=== PATIENT | female | born 1990 | race Two or more races ===

== ENCOUNTER 2020-04-24 09:50 | Emergency (ER) | payer OTHER, SELFPAY ==
--- NOTE | 2020-04-24 10:45 | XR_ITS ---
EXAMINATION: XR CHEST CLINICAL INFORMATION: Cough, shortness of breath COMPARISON: None TECHNIQUE: Portable upright AP view of the chest was obtained. FINDINGS: The lungs are clear. There is no airspace consolidation or groundglass opacity. There is no pleural reaction or effusion. The heart is normal in size. The hilar and mediastinal contours are normal. There is mild curvature thoracic spine. XR/XR chest 1V IMPRESSION: Lungs clear.
[2020-04-24 10:46] VITALS: BP 122/70; PULSE 76; RESP 16; TEMP 36.7; O2SAT 98; BMI 25.7
--- NOTE | 2020-04-24 11:35 | ED_ITS ---
HPI - URI/Sore Throat General Chief Complaint: Upper Respiratory Symptoms Stated Complaint: COUGH,SOB Time Seen by Provider: 04/24/20 10:45 Source: patient Mode of arrival: ambulatory Limitations: no limitations History of Present Illness HPI Narrative: Otherwise healthy 30-year-old female presenting with complaint of states since yesterday she started with some rhinorrhea and nasal congestion with cough starting later in the day and has had symptoms gradually worsening. Now has cough fits. Denies any history of asthma. 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 No travel. No chest pain at the moment. No GI symptoms. No headache. MD elicited complaint: cough, sore throat, rhinorrhea and nasal congestion Severity: mild Description of mucous: clear Able to tolerate fluids by mouth: Yes Exacerbating factors: nothing Relieving factors: other (Has not tried anything) Associated symptoms: rhinorrhea, nasal congestion, sore throat and cough Treatments prior to arrival: none Related Data Previous Rx's Medication Instructions Recorded albuterol sulfate 2 puff INHALATION Q4-6H PRN #18 g 04/24/20 benzonatate [Tessalon Perles] 100 mg PO TID PRN #14 cap 04/24/20 Allergies Allergy/AdvReac Type Severity Reaction Status Date / Time acetaminophen [From VICODIN] Allergy Unknown UNKNOWN Verified 04/13/20 13:00 hydrocodone [From VICODIN] Allergy Unknown UNKNOWN Verified 04/13/20 13:00 Review of Systems Review of Systems: Constitutional: No Weight loss, No Fever, No Chills, No Night Sweats, No Fatigue, No Malaise ENT/Mouth: No Hearing loss, No Ear Pain, No Hoarseness, No Swallowing Difficulty Eyes: No Eye Pain, No Swelling, No Redness, No Foreign Body, No Discharge, No Vision Changes Cardiovascular: No Chest Pain, No SOB, No Dyspnea on Exertion, No Orthopnea, No Edema, No Palpitations Respiratory: + Cough, No Sputum, No Wheezing, No Smoke Exposure, No Dyspnea Gastrointestinal: No Nausea, No Vomiting, No Diarrhea, No Constipation, No abdominal Pain, No Hematochezia, No Melena Genitourinary: no irregular bleeding, No Dysuria, No Urinary Frequency, No Hematuria, No Urinary Incontinence, No Urgency, No Flank Pain, No Urinary Flow Changes, No Hesitancy Musculoskeletal: No joint pain, No Myalgias, No Joint Swelling Skin: No Skin Lesions, No rash Neuro: No Weakness, No Numbness, No Paresthesias, No Loss of Consciousness, No Dizziness, No Headache Heme/Lymph: No Bruising, No Bleeding,No Lymphadenopathy Endocrine: No Polyuria, No Polydipsia, No Temperature Intolerance Yes all other systems are reviewed and are negative [facility] Past Medical History Surgical History History of orthopedic surgery Family History Family History (Updated 04/13/20 @ 13:01 by Zarina Paniagua [facility]) Father No problems noted. Mother Hypertension Diabetes Family history of thyroid problem Family/Other Liver cancer Diabetes Alcoholism Social History Social History Advance Directives: No Advance Directives Information Provided: No Physical Exam Vital Signs: Vital Signs: Last Vital Signs Temp 98.1 F 04/24/20 10:46 Pulse 76 04/24/20 10:46 Resp 16 04/24/20 10:46 BP 122/70 04/24/20 10:46 Pulse Ox 98 04/24/20 10:46 Body Mass Index 25.7 Reviewed Const: General: cooperative and healthy appearing; No acute distress or intoxicated appearing Nutritional Appearance: average body habitus Orientation/consciousness: patient oriented x3 HENMT: Head: Yes normal to inspection Ears: hearing grossly normal bilaterally Eyes: General: appearance normal, both eyes and all related structures Visual Yates: normal visual yates by confrontation Neck: Neck: Yes normal visual inspection, No positive Brudzinski's sign, No positive Kernig's sign and No tender Thyroid: Thyroid normal Chest: Chest palpation & inspection: normal inspection of the chest Resp: Other: Fits of dry bronchial cough Effort & Inspection: normal respiratory effort Auscultation: clear to auscultation bilaterally Cardio: Jugular venous distension: no JVD Rhythm: regular rhythm GI: Inspection: Yes normal to inspection Percussion: Yes normal to percussion Auscultation: normal bowel sounds : General: Yes no CVA tenderness Back/Spine/Pelvis: Back: no CVA tenderness Skin: General skin exam: no rashes or lesions noted Neuro: General: patient oriented x3 Extrem: General: Yes normal to inspection MDM - URI/Sore Throat MDM Narrative Medical decision making narrative: Chest x-ray negative. Upper strep negative. Culture pending. COVID-19 PCR sent. Will discharge with clear precaution return follow-up instructions. At this time hemodynamically stable home care reviewed. Work note provided. Stable for discharge. Differential Diagnosis Differential diagnosis: Likely upper respiratory infection, viral infection, bronchitis and pharyngitis; Unlikely croup, otitis media, sinusitis and influenza Medical Records Attestation: I reviewed the patient's medical records. Lab Data Attestation: I reviewed the patient's lab results. Imaging Data Chest x-ray: Radiologist's impression: [address] [address] XRay Report Signed Patient: Ludy Szymanski#: [id number] : 1990Acct:[id number] Age/Sex: 30 / FADM Date: 04/24/20 Loc: .ED Attending Dr: Ordering Physician: Enrico Espinosa NP Date of Service: 04/24/20 Procedure(s): XR chest 1V Accession Number(s): [id number] cc: Enrico Espinosa INGOT CASTER~ EXAMINATION: XR CHEST CLINICAL INFORMATION: Cough, shortness of breath COMPARISON: None TECHNIQUE: Portable upright AP view of the chest was obtained. FINDINGS: The lungs are clear. There is no airspace consolidation or groundglass opacity. There is no pleural reaction or effusion. The heart is normal in size. The hilar and mediastinal contours are normal. There is mild curvature thoracic spine. XR/XR chest 1V IMPRESSION: Lungs clear. Dictated By:MAXWELL COSTA MD Signed By:<Electronically signed by MAXWELL COSTA MD in OV>04/24/20 1109 DD/ 1045 TD/TT: Sql Server Bi Developer: ANTONY Discharge Plan Discharge Clinical Impression: Upper respiratory infection, Cough Instructions: Upper Respiratory Infection (ED), Acute Cough (ED) Additional Instructions: We have since reviewed COVID-19 This test is pending and will take up to 3-5 days results will call with results even if negative or positive In the meantime self-isolation/social distancing Remain out of work until you get a negative COVID test and at least 3 days sympt om free Your chest x-ray today was negative Wrist rapid strep test was negative Supportive cares reviewed Return if any concerns or worsening symptoms Thank you Prescriptions: New albuterol sulfate 90 mcg/actuation HFA aerosol inhaler 2 puff inhalation Q4-6H PRN (Reason: shortness of breath or wheezing) Qty: 18 RF: 0 benzonatate [Tessalon Perles] 100 mg capsule 100 mg PO TID PRN (Reason: cough) Qty: 14 RF: 0 Referrals: Jaren Daniel MD [Primary Care Provider] - 1 week (Phone visit) Stand Alone Forms: Work/School Release
== END 2020-04-24 11:52 | disposition home or self-care (01) ==
PROVIDERS: Nurse Practitioner Primary Care; Emergency Provider Internal Medicine; PCP Internal Medicine
DX: J06.9 Acute upper respiratory infection, unspecified (principal); R05 Cough; Z20.828 Contact with and (suspected) exposure to other viral communicable diseases
CPT/HCPCS: 71045; 87071; 87880; 99283; U0003

== ENCOUNTER 2020-06-09 10:27 | Emergency (ER) | payer OTHER, SELFPAY ==
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
[2020-06-09 10:38] VITALS: BP 104/52; PULSE 64; RESP 18; TEMP 36.4; O2SAT 100; BMI 28.3
== END 2020-06-09 11:04 | disposition home or self-care (01) ==
PROVIDERS: Emergency Provider Emergency Medicine; PCP Internal Medicine
DX: S39.012A Strain of muscle, fascia and tendon of lower back, initial encounter (principal); V43.52XA Car driver injured in collision with other type car in traffic accident, initial encounter; Y93.89 Activity, other specified; Y92.414 Local residential or business street as the place of occurrence of the external cause; Y99.9 Unspecified external cause status
CPT/HCPCS: 99283

== ENCOUNTER 2020-06-23 13:27 | Outpatient (REF) | payer OTHER, SELFPAY ==
--- NOTE | 2020-06-23 13:35 | XR_ITS ---
EXAMINATION: XR THORACIC SPINE CLINICAL INFORMATION: Mid back pain. COMPARISON: None TECHNIQUE: 3 views of the thoracic spine were obtained. FINDINGS: There is no fracture or bone destruction seen and the vertebral alignment is normal. There is no disc space narrowing. There is no abnormality of the paraspinal soft tissues. XR/XR thoracic spine 3V IMPRESSION: Unremarkable examination.
== END 2020-06-23 13:28 | disposition home or self-care (01) ==
LOC: HO.XRAY 13:27
PROVIDERS: PCP Internal Medicine; Visit Provider Chiropractor
DX: M54.9 Dorsalgia, unspecified (principal)
CPT/HCPCS: 72072

== ENCOUNTER 2020-11-15 10:56 | Outpatient (REF) | payer OTHER, SELFPAY ==
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
[2020-11-15 13:51] LABS: MANUAL DIFF FLAG NO
[2020-11-15 13:53] LABS: Glucose Urine UA NEG (NEG); Leukocyte Esterase Urine NEG (NEG); Nitrite Urine NEG (NEG); Urine Blood NEG (NEG); Urine Ketones 15 MG/DL (NEG); Urine Protein NEG (NEG-TRACE)
[2020-11-15 13:54] LABS: Appearance Urine CLEAR; Color Urine YELLOW
[2020-11-15 14:01] LABS: Basophils Absolute Auto 0.1 X10*3/uL (0.0-0.2); Basophils Percent Auto 0.5 % (0-2); Eosinophils Absolute Auto 0.2 X10*3/uL (0.0-0.4); Eosinophils Percent Auto 2.1 % (0-4); Hematocrit 40.1 % (37-47); Hemoglobin 13.2 g/dl (12.0-16.0); Imm Gran Abs Auto 0.04 X10*3/uL (0.00-0.03); Imm Gran Pct Auto 0.4 % (0.0-0.4); Lymphocytes Absolute Auto 1.3 X10*3/uL (1.2-4.9); Lymphocytes Percent Auto 11.5 % (20-40); Mean Corpuscular HGB Conc 32.9 g/dl (31.0-35.0); Mean Corpuscular Hemoglobin 28.9 pg (27.0-33.0); Mean Corpuscular Volume 87.7 fL (80-98); Mean Platelet Volume 11.5 fL (9.4-12.3); Monocytes Absolute Auto 0.8 X10*3/uL (0.1-1.2); Monocytes Percent Auto 6.6 % (2-11); Neutrophils Percent Auto 78.9 % (45-73); Platelet Count 201 X10*3/uL (160-400); Red Blood Count 4.57 X10*6/uL (4.20-5.50); Red Cell Distribution Width 14.4 % (11.0-16.0); White Blood Count 11.4 X10*3/uL (4.8-10.8)
[2020-11-15 14:32] LABS: Anion Gap 12 (12-20); Blood Urea Nitrogen 5 mg/dL (9-16); Calcium 9.2 mg/dL (8.4-10.2); Carbon Dioxide 23 mmol/L (22-29); Chloride 107 mmol/L (96-108); Estimated Glomerular Filt Rate > 60; Glucose Random 73 mg/dL (60-115); Potassium 3.9 mmol/L (3.3-5.1); Sodium 138 mmol/L (135-145)
== END 2020-11-15 10:57 | disposition home or self-care (01) ==
LOC: HO.HMGCLDS 10:56
PROVIDERS: PCP Internal Medicine; Visit Provider Nurse Practitioner Family
DX: O26.891 Other specified pregnancy related conditions, first trimester (principal); R10.9 Unspecified abdominal pain
CPT/HCPCS: 36415; 76801; 80048; 81003; 84702; 85025

== ENCOUNTER 2020-11-15 13:19 | Outpatient (REF) | payer OTHER, SELFPAY | END 2020-11-15 13:20 | disposition home or self-care (01) | LOC: HO.HMGCX 13:19 | PROVIDERS: PCP Internal Medicine; Visit Provider Nurse Practitioner Family | DX: Z13.89 Encounter for screening for other disorder (principal) ==

== ENCOUNTER 2020-12-25 08:42 | Outpatient (REF) | payer OTHER, SELFPAY | END 2020-12-25 08:43 | disposition home or self-care (01) | LOC: HO.LAB 08:42 | PROVIDERS: PCP Internal Medicine; Visit Provider Internal Medicine | DX: Z20.822 Contact with and (suspected) exposure to COVID-19 (principal) | CPT/HCPCS: C9803; U0003; U0005 ==

== ENCOUNTER 2022-01-15 11:10 | Emergency (ER) | payer OTHER, SELFPAY ==
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
[2022-01-15 11:17] VITALS: BP 115/76; PULSE 68; RESP 18; TEMP 36.4; O2SAT 100; BMI 30.9
[2022-01-15 13:20] VITALS: BP 117/66; RESP 16; O2SAT 98
[2022-01-15] MEDS: Cyclobenzaprine HCl 5 MG TABLET PO (13:47)
[2022-01-15] MEDS: Butalb/Acetamin/Caff 50/325/40 TABLET 2 TAB PO (13:48)
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
[2022-01-15 15:21] VITALS: BP 130/90; PULSE 48; RESP 16; O2SAT 98
== END 2022-01-15 15:53 | disposition home or self-care (01) ==
PROVIDERS: Emergency Provider Emergency Medicine; PCP Internal Medicine
DX: S06.0X9A Concussion with loss of consciousness of unspecified duration, initial encounter (principal); M79.10 Myalgia, unspecified site; R51.9 Headache, unspecified; R07.89 Other chest pain; M25.521 Pain in right elbow; V43.52XA Car driver injured in collision with other type car in traffic accident, initial encounter; Y93.9 Activity, unspecified; Y92.410 Unspecified street and highway as the place of occurrence of the external cause; Y99.9 Unspecified external cause status; Z79.899 Other long term (current) drug therapy
CPT/HCPCS: 70450; 70486; 71101; 73080; 99283; 99284

== ENCOUNTER 2024-03-03 15:18 | Outpatient (AMB) | payer OTHER, SELFPAY ==
[2024-03-03 15:20] VITALS: BP 100/60; PULSE 76; O2SAT 98; BMI 30.3
--- NOTE | 2024-03-03 15:20 | A.OFFPC_ITS ---
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 Accompanied by: Self / Same As Patient Allergies acetaminophen [From VICODIN] Allergy (Unknown, Verified 03/03/24 15:55) UNKNOWN hydrocodone [From VICODIN] Allergy (Unknown, Verified 03/03/24 15:55) UNKNOWN Medication List - Last Reconciled 03/03/24 by Jaren Daniel MD acetaminophen (Tylenol Extra Strength) 500 mg PO Q6H PRN ibuprofen 600 mg PO Q8H PRN Tobacco use date assessed: 03/03/24 Dental Screening Dental Screen Date: 03/03/24 Did you have a dental visit in the last 12 months?: Yes Did you have a dental problem in the last 6 months where you did not have access to dental care?: No Was dental information given to patient?: Patient has dentist HPI Regular Check Up HPI Details Patient comes in today for her annual physical examination - patient has not been back since her last visit/physical here almost 5 years ago on 04/12/2019 Patient states that she has been tied up over the years taking care of everybody else ; also had her third child a couple of years ago in 2021 States that she currently has a few issues that she would like to have addressed She has had problems with her vision for a while now and thinks she just need new eyeglasses but she has not been able to schedule an appointment to see an eye doctor - thinks she needs a referral to see one She has also been experiencing increased pain in her right leg for the past few months now - states that this is the leg that she fractured back in 2008 and had a metal alex inserted up at [facility] in [place] The metal alex was removed a couple of years later in 2010 but she's had some pain in her leg since but the current pain is much worse than in the past States that she has been compensating for this by putting more of her weight on her left leg and she has been experiencing some pain in her left knee lately - 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 She has also noticed more and more veins becoming very visible on both of her thighs and legs over the years Relates that she has been experiencing increased anxiety as well and would like to get a referral for therapy She denies any headaches or dizziness Denies any chest pains, no SOB No nausea/vomiting, no abdominal pain No change in bowel habits noted She denies any acute urinary symptoms States that she is up-to-date with her annual gynecology exam and pap smear and has her next appointment coming up in month or so [facility] Medical History (Updated 03/04/24 @ 08:31 by Jaren Daniel MD) Obesity, class 1 Smoker Anxiety Surgical History (Updated 03/04/24 @ 08:30 by Jaren Daniel MD) History of orthopedic surgery Family History Father No problems noted. Mother Hypertension Diabetes Family history of thyroid problem Family/Other Liver cancer Diabetes Alcoholism Social History (Updated 03/04/24 @ 08:29 by Jaren Daniel MD) Housing: House Patient Tobacco Use Status: Current everyday Tobacco user Cigarette Packs Per Day: 0.5 Cigarettes Per Day: 10 service: No Current occupational status: employed Cognitive needs: No Hearing needs: No Vision needs: No Questionnaire PHQ-9 Over the last 2 weeks, how often have you been bothered by any of the following problems? 1. Little interest or pleasure in doing things: not at all 2. Feeling down, depressed, or hopeless: not at all 3. Trouble falling or staying asleep, or sleeping too much: not at all 4. Feeling tired or having little energy: not at all 5. Poor appetite or overeating: not at all 6. Feeling bad about yourself - or that you are a failure or have let yourself or your family down: not at all 7. Trouble concentrating on things, such as reading the newspaper or watching television: not at all 8. Moving or speaking so slowly that other people could have noticed. Or the opposite - being so fidgety or restless that you have been moving around a lot more than usual: not at all 9. Thoughts that you would be better off or of hurting yourself in some way: not at all Total score: 0 Depression Screening Interpretation: Negative Depression Screening Done: Yes 62123 - PHQ-9 Billing: Yes Source: Developed by Drs. David Schuler, Jhon Pederson and colleagues, with an educational lacey from [employer]. Thrive Questionnaire Date Thrive assessed: 03/03/24 I am a: Patient What is your living situation today?: I have a steady place to live Within the past 12 months, did the food you bought not last and you didn't have the money to get more?: Never true Within the past 12 months, did you worry whether your food would run out before you got money to buy more?: Never true Do you have trouble paying for medicines?: No Do you have trouble getting transportation to medical appointments?: No Do you have trouble paying your heating and electricity bill?: No Do you have trouble taking care of your child, family member or friend?: No Do you have trouble with day-to-day activities such as bathing, preparing meals, shopping, managing finances, etc.?: No Are you currently unemployed and looking for a job?: No Are you interested in more education?: No Please select the resources that you would like help with: None Currently or been in a relationship where the following occur: No concerns reported THRIVE Score: 0 AUDIT C Alcohol Use Questionnaire (AUDIT-C) 1. How often do you have a drink containing alcohol?: Never 3. How often do you have six or more drinks on one occasion?: Never Total Score: 0 Score Reviewed/Action Taken: Yes LISSETH-7 AMB Questionnaire LISSETH-7 Date LISSETH - 7 assessed: 03/03/24 Feeling nervous, anxious, or on edge: 0 = Not at all Not being able to stop or control worryin = Not at all Worrying too much about different things: 0 = Not at all Trouble relaxin = Not at all Being so restless that it is hard to sit still: 0 = Not at all Becoming easily annoyed or irritable: 0 = Not at all Feeling afraid as if something awful might happen: 0 = Not at all Total LISSETH-7 score (0-4 normal; 5-9 mild; 10-14 moderate; 15-21 severe): 0 Source: Developed by Socorro Moreno Kurt Kroenke and colleagues, with an educational lacey from [employer]. Review of Systems Const Denies chills, Denies fatigue, Denies fever(s), Denies headache(s) and Denies malaise Eyes Reports blurry vision (in both eyes), Denies change in vision, Denies irritation and Denies itchy eyes ENT Denies dysphagia, Denies dizziness, Denies otalgia, Denies headache(s), Denies nasal congestion, Denies neck pain, Denies odynophagia, Denies sinus pain and Denies sore throat Card Denies chest pain, Denies rapid heart rate, Denies irregular heart rhythm, Denies palpitations and Denies dyspnea Resp Denies chest congestion, Denies cough, Denies dyspnea and Denies wheezing GI Denies abdominal pain, Denies bloating, Denies constipation, Denies dysphagia, Denies heartburn, Denies diarrhea, Denies nausea, Denies odynophagia and Denies vomiting Denies hematuria, Denies urinary frequency, Denies dysuria, Denies urinary incontinence and Denies urinary urgency Musc Details: increasing pain in the right leg Denies back pain, Reports arthralgias (in the left knee, at times lately), Denies joint swelling, Denies muscle weakness and Denies neck pain Skin/Breast Details: (+) prominent patches of veins visible over both lower extremities Denies breast pain, Denies breast mass, Denies change in pigmentation, Denies lesions, Denies rash and Denies unusual bruising Neuro Denies dizziness, Denies headache(s) and Denies paresthesias Psych Reports anxiety and Denies depression Endo Denies fatigue and Denies palpitations Vivek/Lymph Denies easy bruising Aller/Immun Denies itchy eyes and Denies wheezing Physical exam (Primary Care) Vital Signs: Last Vital Signs Pulse 76 03/03/24 15:20 BP 100/60 03/03/24 15:20 Pulse Ox 98 03/03/24 15:20 Oxygen Delivery Method Room Air 03/03/24 15:20 BMI result Body Mass Index 30.3 Tobacco/Smoking Status: Tobacco use Status Tobacco use date assessed 03/03/24 03/03/24 15:25 PHQ-9: PHQ-9 Score PHQ-9: Total score 0 03/03/24 16:14 Depression Screening Interpretation: Negative Thrive Assessment: Date of Thrive Assessment Date Thrive assessed 03/03/24 03/03/24 15:25 Currently or been in a relationship where the following occur: No concerns reported Const General: no acute distress, alert and awake Orientation/consciousness: [facility] oriented x3 [facility]: Yes normocephalic and Yes atraumatic Ears: external ears normal, TM's normal bilaterally and EAC's normal General nose exam: No nasal discharge present Face and sinus: Yes normal facial exam and Yes sinuses nontender Teeth and gingiva: dentition normal Throat: Yes posterior oropharynx normal and Yes tonsils normal (no TP congestion) Eyes Eyelids: Yes eyelids normal Conjunctivae: conjunctivae normal Pupils: Equal, round and reactive pupils present EOM: EOMs intact bilaterally Neck Neck: Yes no lymphadenopathy and Yes supple Thyroid: Thyroid normal Resp Auscultation: clear to auscultation bilaterally, no rales and no wheezes Cardio Rate: regular rate Rhythm: regular rhythm Heart sounds: no murmurs GI Palpation (GI): Soft to palpation, nontender and No hepatosplenomegaly present Auscultation: normal bowel sounds General: Yes no CVA tenderness Back/Spine/Pelvis Back: no CVA tenderness Thoracic/Lumbar Spine: thoracic and lumbar spine normal to inspection Skin Lesions: no lesions Rashes: no rashes Neuro General: patient oriented x3, moves all extremities, no focal motor deficits and CN's II-XI intact bilaterally Cranial nerves: Yes Equal, round and reactive pupils present Cognition (Neuro): normal cognition Gait exam (Neuro): Normal gait present Extrem Other: (+) several patches of varicose veins noted over both lower extremities General: Yes no clubbing, cyanosis or edema Right lower extremity: normal to inspection and lower leg Details: tenderness and no edema; no localized swelling Left lower extremity: normal to inspection Coding Level of Care Code Est Pt Prev Care 18-39y(23483) Diagnoses Annual physical exam Z00.00 Impaired vision in both eyes H54.3 Varicose veins of both legs with edema I83.893 Right leg pain M79.604 Anxiety F41.9 Smoker F17.200 Obesity, class 1 E66.811 Assessment & Plan Assessment & Plan (1) Annual physical exam: Code(s): Z00.00 - Encounter for general adult medical examination without abnormal findings Category: Medical Plan: Check labs Patient states that she is up-to-date with her annual gynecology exam and pap smear and has her next appointment in a month or so 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 to send us a copy of her OV report as soon as they are available (2) Impaired vision in both eyes: Code(s): H54.3 - Unqualified visual loss, both eyes Category: Medical Plan: Will refer her to ophthalmologhy for further evaluation and management (3) Varicose veins of both legs with edema: Code(s): I83.893 - Varicose veins of bilateral lower extremities with other complications Category: Medical Plan: Will refer patient to vascular surgery for further evaluation and recommendations (4) Right leg pain: Code(s): M79.604 - Pain in right leg Category: Medical Plan: This is the same leg that suffered a fracture and had a metal alex inserted back in 2008 (alex removed in 2010) at [facility] in [place], [place] Will send patient for x-rays of the right leg for further evaluation Continue Ibuprofen 600 mg Q 8 hours with food PRN for pain - Rx refilled (5) Anxiety: Code(s): F41.9 - Anxiety disorder, unspecified Category: Medical Plan: Per request, will refer her to [facility] for counseling/therapy (6) Smoker: Code(s): F17.200 - Nicotine dependence, unspecified, uncomplicated Category: Social Hx Plan: Patient is counseled on smoking cessation (7) Obesity, class 1: Code(s): E66.811 - Obesity, class 1 Category: Medical Plan: Reinforced diet/exercise as tolerated/lose weight Plan Follow up in 6 months Orders: Orders XR tibia fibula RT 2V 03/03/24 M79.604 - Pain in right leg Complete Blood Count Auto Diff 03/03/24 D64.9 - Anemia, unspecified, R73.9 - Hyperglycemia, unspecified, Z00.00 - Encounter for general adult medical examination without abnormal findings Comprehensive Mckinnon. Panel Fast 03/03/24 E78.00 - Pure hypercholesterolemia, unspecified, R73.9 - Hyperglycemia, unspecified, Z00.00 - Encounter for general adult medical examination without abnormal findings UA CC w/rflx Micro + Cult 03/03/24 R30.0 - Dysuria, R73.9 - Hyperglycemia, unspecified, Z00.00 - Encounter for general adult medical examination without abnormal findings Vitamin D 25-OH Total 03/03/24 E55.9 - Vitamin D deficiency, unspecified, R73.9 - Hyperglycemia, unspecified, Z00.00 - Encounter for general adult medical examination without abnormal findings Lipid Panel 03/03/24 E78.00 - Pure hypercholesterolemia, unspecified, R73.9 - Hyperglycemia, unspecified, Z00.00 - Encounter for general adult medical examination without abnormal findings TSH reflex Free T4 03/03/24 E78.00 - Pure hypercholesterolemia, unspecified, R73.9 - Hyperglycemia, unspecified, Z00.00 - Encounter for general adult medical examination without abnormal findings Hemoglobin A1c 03/03/24 E11.9 - Type 2 diabetes mellitus without complications, R73.9 - Hyperglycemia, unspecified, Z00.00 - Encounter for general adult medical examination without abnormal findings Referrals Ophthalmology Referral H54.3 - Unqualified visual loss, both eyes Vascular Surgery Referral I83.893 - Varicose veins of bilateral lower extremities with other complications Psychiatry Referral F41.9 - Anxiety disorder, unspecified Medications: Changed From ibuprofen 600 mg PO Q8H PRN 30 tabs 0RF back pain To ibuprofen Take with food 600 mg PO Q8H 30 days PRN 90 tabs 1RF pain
== END 2024-03-03 16:15 | disposition home or self-care (01) ==
PROVIDERS: PCP Internal Medicine; Visit Provider Internal Medicine
DX: Z00.00 Encounter for general adult medical examination without abnormal findings (principal); H54.3 Unqualified visual loss, both eyes; I83.893 Varicose veins of bilateral lower extremities with other complications; M79.604 Pain in right leg; F41.9 Anxiety disorder, unspecified; F17.200 Nicotine dependence, unspecified, uncomplicated; E66.811 Obesity, class 1

== ENCOUNTER → 2024-03-03 15:18 | Outpatient (BNVA) | payer OTHER, SELFPAY | PROVIDERS: PCP Internal Medicine; Visit Provider Internal Medicine | DX: Z00.00 Encounter for general adult medical examination without abnormal findings (principal); H54.3 Unqualified visual loss, both eyes; I83.893 Varicose veins of bilateral lower extremities with other complications; M79.604 Pain in right leg; F41.9 Anxiety disorder, unspecified; E66.811 Obesity, class 1; F17.200 Nicotine dependence, unspecified, uncomplicated; Z71.6 Tobacco abuse counseling | CPT/HCPCS: 96127; 99395 ==

== ENCOUNTER 2024-04-20 11:06 | Outpatient (AMB) | payer OTHER, SELFPAY ==
--- NOTE | 2024-04-20 11:07 | MHC.OFFVIS ---
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 Both legs cramp and hurt. Veins worse on the left side. Ankles swell. 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 Complaints include pain over varicosities, swelling of lower extremities, cramping, and heaviness of the lower extremities. It has been affecting their daily activities including walking and standing. It is noted more so in left leg. She is not a diabetic. She is a current smoker, but trying to quit and is only smoking 1 cigarette a day. She is status post a major traumatic right lower extremity fracture in 2008, which she states has led to increased swelling in the right lower extremity as well as pain. Patient denies any previous venous surgery or injections. Patient denies any history of DVT/ PE. Patient denies any history of phlebitis. Trial of compression includes - elevation, which can aggravate her right leg. She has used compression stockings in the past. They now present for vascular evaluation regarding their varicose veins. [facility] Medical History Obesity, class 1 Smoker Anxiety Surgical History History of orthopedic surgery Family History Father No problems noted. Mother Hypertension Diabetes Family history of thyroid problem Family/Other Liver cancer Diabetes Alcoholism Social History Housing: House Patient Tobacco Use Status: Current everyday Tobacco user Cigarette Packs Per Day: 0.5 Cigarettes Per Day: 10 service: No Current occupational status: employed Cognitive needs: No Hearing needs: No Vision needs: No Review of Systems Const Reports as per HPI and Denies weakness ENT Reports Normal hearing present and Denies dizziness Card Reports as per HPI, Denies chest pain, Denies chest pain at rest, Denies chest pain with activity, Denies dyspnea and Denies dyspnea on exertion Resp Reports as per HPI, Denies cough, Denies dyspnea and Denies dyspnea on exertion GI Reports as per HPI, Denies abdominal pain, Denies nausea and Denies vomiting Musc Denies numbness Skin/Breast Reports as per HPI, Denies erythema and Denies wounds Neuro Reports Normal hearing present, Denies dizziness, Denies numbness, Denies Sensory deficit (Neuro) and Denies weakness Psych Reports no additional complaints Endo Reports no additional complaints Physical Exam Const General: healthy appearing and no acute distress Orientation/consciousness: patient oriented x3 HEENT Head: Yes normal to inspection Ears: hearing grossly normal bilaterally Mouth: Normal oral and palatal mucosa present Resp Effort & Inspection: normal respiratory effort and able to speak in complete sentences Auscultation: clear to auscultation bilaterally Cardio Jugular venous distension: no JVD Rate: regular rate Rhythm: regular rhythm Heart sounds: S1 normal heart sound present and S2 normal heart sound present Bruits: no abdominal aortic bruits, no carotid bruits, no femoral bruits and no renal bruits Peripheral pulses: Peripheral pulses 2+ throughout GI Inspection: Yes normal to inspection Palpation (GI): No Abdominal aortic bruit present Skin General skin exam: no rashes or lesions noted Wounds: no wounds Hair: normal Neuro General: patient oriented x3 Cranial nerves: Yes Normal hearing present Cognition (Neuro): normal cognition Gait exam (Neuro): Normal gait present Motor exam (neuro): 5/5 motor strength present throughout Sensory Exam: No Sensory deficit (Neuro) Extrem Other: Right lower extremity: +1 peripheral edema noted, patient states this is normal for her. Palpable DP pulses. Left lower extremity: Spider veins and small varicose veins noted on the upper lateral thigh area and around the knee. Trace peripheral edema noted. Palpable DP pulses noted. CEAP: C - 3 E - primary A - superficial P - reflux General: Yes normal to inspection, Yes full ROM, Yes capillary refill normal and Yes normal gait Assessment & Plan Assessment & Plan (1) Varicose veins of both lower extremities with inflammation: Code(s): I83.11 - Varicose veins of right lower extremity with inflammation; I83.12 - Varicose veins of left lower extremity with inflammation Category: Medical Plan: Ragini is presenting today as a referral for PCP for ongoing varicose veins left more than right. In short, the patient has evidence of venous insufficiency. I have discussed the pathophysiology with the patient. In addition I have provided informational material regarding venous disease to the patient. We have discussed conservative measures including compression, elevation, and exercise. The patient has compression stockings at home and did not need a handout about it. I have taken the liberty of ordering venous insufficiency testing with the patient. They will follow up with me after testing. The patient had an opportunity to ask questions regarding the treatment plan. All questions were answered. No major barriers to understanding were identified. The patient expressed understanding and agreement with the above treatment plan. The patient is aware they should contact our office by phone for worsening of the current condition or the appearance of new symptoms. Thank you for allowing me to participate in the vascular care of this patient. If you have any questions or concerns regarding the treatment for the above condition please do not hesitate to contact me. The office telephone contact is [phone]. This note is constructed using voice recognition software. While every effort has been made to ensure accuracy, medical reception errors may have been included. Thank you for allowing me to participate in the care of your patient. Yours sincerely, DINA Newman Orders: Orders US venous duplex LE BI 1 Week I83.11 - Varicose veins of right lower extremity with inflammation, I83.12 - Varicose veins of left lower extremity with inflammation Coding Level of Care Code New Pt Level 4 (25232) Diagnoses Varicose veins of both lower extremities with inflammation I83.11; I83.12
== END 2024-04-20 12:07 | disposition home or self-care (01) ==
PROVIDERS: PCP Internal Medicine; Visit Provider Physician Assistant Surgical
DX: I83.11 Varicose veins of right lower extremity with inflammation (principal); I83.12 Varicose veins of left lower extremity with inflammation
CPT/HCPCS: 99204

== ENCOUNTER → 2024-04-20 11:06 | Outpatient (BNVA) | payer OTHER, SELFPAY | PROVIDERS: PCP Internal Medicine; Visit Provider Physician Assistant Surgical | DX: I83.11 Varicose veins of right lower extremity with inflammation (principal); I83.12 Varicose veins of left lower extremity with inflammation; F17.210 Nicotine dependence, cigarettes, uncomplicated; I83.813 Varicose veins of bilateral lower extremities with pain | CPT/HCPCS: 99202 ==

== ENCOUNTER 2024-05-28 12:20 | Outpatient (REF) | payer OTHER, SELFPAY ==
--- NOTE | ~2024-05-28 | US_ITS ---
EXAMINATION: US LOWER EXTREMITY VEINS BILATERAL HISTORY: I83.11 - Varicose veins of right lower extremity with inflammation COMPARISON: There are no prior studies for comparison. TECHNIQUE: Duplex and color Doppler sonographic examination of the deep venous system of the bilateral lower extremities was performed. FINDINGS: The right common femoral, superficial femoral, and popliteal veins are patent demonstrating normal compressibility, spontaneous flow, and augmentation. There is a normal color and spectral Doppler waveform appearance of the visualized deep venous system above the knee. The posterior tibial and peroneal veins are patent. The left common femoral, superficial femoral, and popliteal veins are patent demonstrating normal compressibility, spontaneous flow, and augmentation. There is a normal color and spectral Doppler waveform appearance of the visualized deep venous system above the knee. The posterior tibial and peroneal veins are patent. US/US venous duplex LE BI IMPRESSION: No evidence of acute DVT in the bilateral lower extremities. Electronically signed by: David Carson MD 05/31/2024 12:31 PM [facility] [place]
== END 2024-05-28 12:21 | disposition home or self-care (01) ==
LOC: HO.US 12:20
PROVIDERS: Visit Provider Physician Assistant Surgical
DX: I83.11 Varicose veins of right lower extremity with inflammation (principal); I83.12 Varicose veins of left lower extremity with inflammation
CPT/HCPCS: 93970

== ENCOUNTER → 2024-05-28 12:22 | Outpatient (BNV) | payer OTHER, SELFPAY | PROVIDERS: Visit Provider Radiology Diagnostic Radiology | DX: I83.11 Varicose veins of right lower extremity with inflammation (principal); I83.12 Varicose veins of left lower extremity with inflammation | CPT/HCPCS: 93970 ==

== ENCOUNTER 2024-12-20 20:49 | Emergency (ER) | payer OTHER, SELFPAY ==
[2024-12-20 21:01] VITALS: BP 106/61; PULSE 73; RESP 18; TEMP 36.4; O2SAT 99; BMI 30.9
--- OUTSIDE RECORDS SUMMARY | 2024-12-21 04:13 | XMS_ITS | Clinical Summary ---
Author Organization [facility] ity Address [address] [place] [address] Care Team Providers Care Radioisotope Technician Name Role Phone Danette Mota MD Primary Care Provider [phone] Surgical History Surgery Date Site/Laterality Comments LEG SURGERY PROCEDURE: HISTORICAL LEG SURGERY; COMMENT: right lower extremity Medical History Medical History Date Comments Patient denies medical problems DX:Patient denies medical problems Marijuana use 11/22/2020 DX:Marijuana use ; COMMENT: Pt currently smoking MJ in . She states she has decreased significantly. Is smoking twice a day at present. Pt is aware the goal is to stop completely and she agrees to do so. 12/05/2020- states stopped MJ use over the weekend 01/30- Utox- positive 05/01 UDS positive for marijuana Family History Medical History Relation Name Comments Diabetes Mother Hypertension Mother Thyroid disease Mother Relation Name Status Comments Father Alive Mother Alive Paternal Grandfather Alive Social History Tobacco Use Types Packs/Day Years Used Date Smoking Tobacco: Every Day Smokeless Tobacco: Former Alcohol Use Standard Drinks/Week Comments Not Currently 0 (1 standard drink = 0.6 oz pur e alcohol) Comments Unknown Sex and Gender Information Value Date Recorded Sex Assigned at Not on file Legal Sex Female 4:39 PM EST Gender Identity Not on file Sexual Orientation Not on file Obstetrics History Last Filed Vital Signs Vital Sign Reading Time Taken Comments Blood Pressure 110/72 08/10/2021 1:05 PM EDT Pulse 90 08/10/2021 1:05 PM EDT Temperature - - Respiratory Rate - - Oxygen Saturation - - Inhaled Oxygen Concentration - - Weight 94.3 kg (208 lb) 08/10/2021 1:05 PM EDT Height - - Body Mass Index - - Plan of Treatment Health Maintenance Due Date Last Done Comments Hepatitis B Vaccines (1 of 3 - 19+ 3-dose series) 2008 Pneumococcal Vaccine: Pediatrics (0 to 5 Years) and At-Risk Patients (6 to 49 Years) (1 of 2 - PCV) 2008 HIV Screening 04/24/2022 Hepatitis C Screening 04/24/2022 Social Influencers of Health Screening 04/24/2022 COVID-19 Vaccine (1 - 2023-2 5 season) 2024 Depression Screening 05/26/2024 Cervical Cancer Screening: P ap Smear 08/10/2024 08/10/2021, 12/05/2020 Influenza Vaccine (#1) 2025 DTaP,Tdap,and Td Vaccines (2 - Td or Tdap) 03/28/2031 03/28/2021 HIB Vaccines Aged Out No longer eligi ble based on patient's age to complete this topic HPV Vaccines Aged Out No longer eligi ble based on patient's age to complete this topic Hepatitis A Vaccines Aged Out No long er eligible based on patient's age to complete this topic IPV Vaccines Aged Out No longer eligi ble based on patient's age to complete this topic MMR Vaccines Aged Out No longer eligi ble based on patient's age to complete this topic Meningococcal ACWY Vaccine Aged Out N o longer eligible based on patient's age to complete this topic Meningococcal B Vaccine Aged Out No l onger eligible based on patient's age to complete this topic RSV Immunization Patients Under 20 months Aged Out No longer eligible b ased on patient's age to complete this topic Varicella Vaccines Aged Out No longer eligible based on patient's age to complete this topic Procedures Procedure Name Priority Date/Time Associated Diagnosis Comments PAP SMEAR Routine 08/10/2021 from Last 3 Months or Most Recently Relevant to Health Maintenance Results * Pap smear (08/10/2021) 08/10/2021 Narrative HISTORICAL TESTING LAB RESULTING AGENCY - 08/24/2021 11:35 AM EDT [id number] THINPREP PAP, IMAGED: LOW-GRADE SQUAMOUS INTRAEPITHELIAL LESION (LSIL) . NOTE: THE PAP TEST IS A SCREENING TEST WITH AN INHERENT FALSE NEGATIVE RATE. AUTOMATED PRESCREENING OF ALL LIQUID BASED SPECIMENS IS PERFORMED BY THE THINPREP IMAGING SYSTEM UNLESS OTHERWISE STATED. CHRISTIAN HEALY , NATHANAEL(ASCP) (CASE SCREENED 08 23 2021) LILY BLAIR M.D. , PATHOLOGIST (CASE ELECTRONICALLY SIGNED 08 24 2021) RESULT OF APTIMA HIGH RISK HPV ASSAY: HIGH RISK HPV: NEGATIVE (SEROTYPES 16,18,31,33,35,39,45,51,52,56,58,59,66,68) COMPLETED ON 2021-08-14 ADEQUACY: SATISFACTORY ENDOCERVICAL/TRANSFORMATION ZONE COMPONENT PRESENT. SOURCE: THINPREP PAP HPV ANY DX: REFLEX 16 AND 18, CERVICAL, IMAGED CLINICAL INFORMATION: HPV ANY DIAGNOSIS. POST , POSITIVE ASCUS HPV POS, [Z12.4] Alexandrea Byers [facility] LAB CYTOLOGY ORDERABLES Final R esult HISTORICAL TESTING LAB RESULTING AGENCY from Last 3 Months or Most Recently Relevant to Health Maintenance Care Teams Radioisotope Technician Relationship Specialty Start Date End Date Danette Mota MD [address] [place] [address] [address] [facility] [place] [address] PCP - General Internal Medicine 11/21/20
== END 2024-12-21 04:17 | disposition left against medical advice (07) ==
LOC: HO.ED 12-21 04:11
PROVIDERS: Emergency Provider Emergency Medicine; PCP Internal Medicine
DX: S61.412A Laceration without foreign body of left hand, initial encounter (principal); W26.0XXA Contact with knife, initial encounter; Y93.G1 Activity, food preparation and clean up; Y92.010 Kitchen of single-family (private) house as the place of occurrence of the external cause; Y99.9 Unspecified external cause status; Z53.21 Procedure and treatment not carried out due to patient leaving prior to being seen by health care provider
CPT/HCPCS: 99281